=== PATIENT | male | born 1955 | race Caucasian/White ===

== ENCOUNTER 2018-06-06 05:37 | Day surgery (SDC) | payer OTHER ==
[2018-06-06] VITALS (14 sets, daily range): BP systolic 125–152; BP diastolic 61–94; PULSE 78–102; RESP 10–24; Ht 172.7 cm; Wt 64.9 kg
[~2018-06-06] VITALS: Ht 172.7 cm; Wt 64.9 kg
[2018-06-06] MEDS ORDERED: NEOMYC/POLYMYX/BACIT 30 GM OINT ONE (06:47)
[2018-06-06] MEDS ORDERED: POLYMYXIN/BACITRACIN 1L IRRIG ONE (06:47)
[2018-06-06] MEDS ORDERED: BUPIVACAINE 0.5%/EPI (SDV) 30 ML INJ ONE (06:47)
[2018-06-06] MEDS ORDERED: ROPIVACAINE 0.5 % 30 ML VIAL ONE (06:47)
[2018-06-06] MEDS ORDERED: METOCLOPRAMIDE 10 MG INJ IV ONE (07:00)
[2018-06-06] MEDS ORDERED: FAMOTIDINE 20 MG INJ IV ONE (07:00)
--- NOTE | 2018-06-06 07:14 | PREAC ---
Date/Time of Note Date/Time of Note DATE: 06/06/18 TIME: 07:10 Anesthesia Eval and Record Evaluation Time Pre-Procedure Interview DATE: 06/06/18 TIME: 07:10 Age 62 Sex male NPO: 8 hrs Preoperative diagnosis left foot pain Planned procedure left 1st metatarsaphalangeal cheilectomy Past Medical History Past Medical History: Includes Cardio: Arrythmia (s/p PPM AICD 6 years ago, chemo induced cardiac effects) Neuro: Other (chronic back pain ) Musculoskeletal: Rheumatoid arthritis GI: Other (chronic nausea and vomiting) Surgery & Anesthesia Issues No known issue Meds Anticoagulation: No Beta Valeria within 24 hr: No Reason Beta Valeria not given: Pt. not on B-Valeria Meds reviewed: Yes Allergies Coded Allergies: No Known Allergy (Unverified , 06/06/18) Allergies Reviewed: Yes Labs/Studies Labs Reviewed: Reviewed by anesthesiologist test: N/A Studies: ECG, CXR Pre-procedure Exam Last vitals Vital Signs Date Temp Pulse Resp B/P (MAP) Pulse Ox O2 O2 Flow FiO2 Time Delivery Rate 06/06/18 97.9 102 18 146/94 96 Room Air 06:26 (111) Airway: Adequate mouth opening, Adequate thyromental dist Mallampati: Mallampati II Teeth: Normal Lung: Normal Heart: Normal ASA Physical Status ASA physical status: 3 Emergency: None Planned Anesthetic General/MAC: LMA Planned Pain Management Parenteral pain med, Local by surgeon Pre-operative Attestations Prior to commencing anesthesia and surgery, the patient was re-evaluated, there was verification of: *The patient's identity *The results of appropriate recent lab work and preoperative vital signs *The above evaluation not changing prior to induction *Anesthetic plan, risk benefits, alternative and complications discussed with patient/family; questions answered; patient/family understands, accepts and wishes to proceed. OLIVIA SUE Jun 06, 2018 07:14
[2018-06-06] MEDS ORDERED: PROPOFOL 20 ML ONE ×2 (07:16→09:05)
[2018-06-06] MEDS ORDERED: LIDOCAINE 2% (SDV) 5 ML INJ ONE (07:16)
[2018-06-06] MEDS ORDERED: CEFAZOLIN 1 GM INJ ONE (07:17)
[2018-06-06] MEDS ORDERED: FENTAnyl 50 MCG/ML VIAL ONE (07:17)
[2018-06-06] MEDS ORDERED: OXYCODONE/ACETAMINOPHEN (5/325) TAB PO PRN ×2 (07:30)
[2018-06-06] MEDS ORDERED: METOCLOPRAMIDE 10 MG INJ IV PRN (07:30)
[2018-06-06] MEDS ORDERED: HYDROmorphONE 1 MG/5 ML IV SYRINGE IV PRN ×3 (07:30)
[2018-06-06] MEDS ORDERED: MEPERIDINE 25 MG INJ IV PRN (07:30)
[2018-06-06] MEDS ORDERED: PROCHLORPERAZINE 10 MG INJ IV PRN (07:30)
[2018-06-06] MEDS ORDERED: PROPOFOL 60 ML ONE (07:35)
[2018-06-06] MEDS ORDERED: MIDAZOLAM 1 MG/ML 2 ML INJ ONE (07:45)
[2018-06-06] MEDS ORDERED: ONDANSETRON 4 MG INJ ONE (07:56)
--- NOTE | 2018-06-06 08:12 | HPN ---
Date/Time of Note Date/Time of Note DATE: 06/06/18 TIME: 08:12 Interval H&P Admission Note Pt. seen H&P reviewed: No system changes WILLAM DELACRUZ MD Jun 06, 2018 08:12
[2018-06-06] MEDS ORDERED: DEXAMETHASONE 4 MG/ML 5 ML INJ ONE (08:24)
[2018-06-06] MEDS ORDERED: morphine 2 MG INJ IV PRN (08:30)
[2018-06-06] MEDS ORDERED: SCOPOLAMINE 1.5 MG PATCH ONE (08:31)
[2018-06-06] MEDS ORDERED: PHENYLephrine (100 MCG/ML) 10ML SYG ONE (09:06)
[2018-06-06] MEDS ORDERED: KETOROLAC 30 MG INJ ONE (09:27)
--- NOTE | 2018-06-06 10:33 | PAC ---
Date/Time of Note Date/Time of Note DATE: 06/06/18 TIME: 10:33 Post-Anesthesia Notes Post-Anesthesia Note Last documented vital signs Vital Signs Date Temp Pulse Resp B/P (MAP) Pulse Ox O2 O2 Flow FiO2 Time Delivery Rate 06/06/18 80 24 125/75 100 Room Air 10:15 (92) 06/06/18 98.5 09:54 06/06/18 8.0 09:50 Activity: WNL Respiratory function: WNL Cardiovascular function: WNL Mental status: Baseline Pain reasonably controlled: Yes Hydration appropriate: Yes Nausea/Vomiting absent: Yes OLIVIA SUE Jun 06, 2018 10:33
--- NOTE | 2018-06-06 12:26 | OPR ---
Date/Time of Note Date/Time of Note DATE: 06/06/18 TIME: 12:25 Operative Report Procedure Date: Jun 06, 2018 Preoperative Diagnosis Left foot hallux rigidus grade 3 Postoperative Diagnosis Left foot hallux rigidus grade 3 Operation/Procedure Performed Left foot hallux rigidus cheilectomy with implant Surgeon Wang Delacruz MD Apartment Maintenance Manager none Anesthesia Type: general Anesthesiologist: OLIVIA SUE Tourniquet Time: 41 min at 250 mmHg Estimated Blood Loss: minimal Transfusion none Specimen none Grafts/Implants Cartiva size 10 Complications none Pt Condition Post Procedure: stable Disposition: PACU Indications Patient is a 62-year-old gentleman with a ongoing history of hallux rigidus grade 3 who has ongoing pain and limited range of motion at his left first MTP joint. We have tried nonoperative management including cortisone injections as well as physical therapy however patient continued has pain. Patient would like to proceed with Cartiva implant. He is aware that this device is new and has only 5 years of data which does show improved pain and range of motion. He is aware that he may require a second surgery in the future such as a fusion to treat the pain if the pain does not resolve with the surgery. Risk note: Patient was met in the risks and benefits of surgery patient quechan language, including but not limited to infection, bleeding, risk of injury to blood vessels and nerves ligaments or tendons; loss of limb, loss of life and need for future surgery. Patient acknowledges risk by signing the surgical consent form. Procedure Description Patient was met in the preoperative holding area and the correct operative site was confirmed with both patient and with consent. Correct operative site was marked. Patient was then given a regional block anesthesia and then brought to the operative theater placed supine on the operative table. Patient was then given preoperative antibiotics. Patient was then prepped and draped in the normal sterile fashion and a timeout was taken. All parties in the room agreed is correct patient, extremity and patient. Esmarch was brought up to 250 mmHg and a dorsal medial incision was made over the first MTP joint exposing the capsule with care to avoid any neurovascular injury. EHL tendon was protected during the approach and the joint was then entered. Extensive dorsal osteophytes were seen and a loose dorsal osteophyte was found over the proximal phalanx and removed. There was a gentle release of the soft tissues of the lateral medial compartment to ensure enough exposure for allow implant implementation of the device. There was an initial resection of osteophytes the proximal phalanx and metatarsal head with care taken to avoid removing too much in order to ensure there is adequate dorsal bone stock preservation. Metatarsal head was identified and a large loss of chondral denudation was found on the dorsal aspect of the metatarsal head. Using the concave end of the placar to ensure it was centered in the medial lateral plane and create a perpendicular angle the metatarsal head placar are was positioned centrally over the worst area of arthritic involvement on the metatarsal head. The guidepin was drilled in central of the metatarsal head and identified to be in the middle of the metatarsal head both centrally on the dorsal and plantar position and the medial lateral position on the fluoroscopy view of AP and lateral. The guidepin was left in and using a cannulated drill bit metatarsal head and c avity was then created and the drill site was flushed out and all debris was removed from the metatarsal head. Implant was prepared on the back table using a size Cartiva. The implant was then inserted with the introducer tube at the implant site perpendicular to the metatarsal head. The implant sat proud of approximately 1.5-2 mm the wound was irrigated thoroughly and the dorsal aspect of the metatarsal head was smoothed down with a oscillating rasp and wound was irrigated thoroughly again. The capsule was then closed with 3-0 vicryl followed by sub-dermal stitches with 3-0 Monocryl and skin closure with 4-0 nylon in a vertical mattress fashion. The wounds were dressed with Xeroform triple antibiotic ointment 4 x 4's ABDs and placed in a well-padded foot strapping wrap. Patient was then placed interstitial shoe. At the end of the case all sponge needle counts were correct. Patient by the PACU in stable condition and the toes are finally warm and well-perfused. WANG DELACRUZ MD Jun 06, 2018 12:26
== END 2018-06-06 11:30 | disposition home or self-care (01) ==
LOC: SDS 05:37
PROVIDERS: ATTEND Orthopaedic Surgery
DX: M20.22 Hallux rigidus, left foot (principal)
CPT/HCPCS: 28291; 73630; 82306; J0690; J1100; J1885; J2250; J2370; J2405; J2765; J2795; J3010; Z7512; Z7610